=== PATIENT | female | born 1975 | race African-American/Black ===

== ENCOUNTER 2022-11-12 23:48 | Emergency (ER) | payer OTHER, SELFPAY ==
[2022-11-13 00:02] VITALS: BP 142/112; PULSE 97; RESP 16; O2SAT 99
[2022-11-13 02:19] VITALS: BP 138/91; PULSE 89; RESP 15; O2SAT 97
[2022-11-13] MEDS: SODIUM CHLORIDE 0.9% IV 50 ML, TRANEXAMIC ACID 1,000 MG TOPICAL (02:30)
--- NOTE | 2022-11-13 03:34 | ED.GENADULT ---
HPI - General Adult General Chief complaint: Dental/Oral Stated complaint: oral bleeding post implants Time Seen by Provider: 11/13/22 02:17 History of Present Illness HPI narrative: Patient 47-year-old female who presents the emergency department with chief complaint of bleeding from dental implant surgery. The patient reports that she had surgery on the and reports that she had an area that was Swollen and then tonight started bleeding. The patient states for several days she had intermittent bleeding but tonight it started bleeding heavily. Patient reports no new trauma reports no fever denies purulent drainage. Related Data Allergies Allergy/AdvReac Type Severity Reaction Status Date / Time tramadol Allergy Unknown Verified 11/13/22 00:04 Review of Systems Review of Systems: A 10 system review of systems was completed on the patient and is negative except for what is stated in the HPI. Nursing and ancillary documentation was reviewed. Exam Narrative: GENERAL: Well-appearing, well-nourished, and in no acute distress. HEAD: Normocephalic, atraumatic. EYES: PERRLA and EOMI. ENT: Nares clear, no rhinorrhea or epistaxis. Mucous membranes moist. There is a small clot present in the maxillary portion of the mouth. The area is oozing blood there is no purulent drainage NECK: Supple. CHEST: Clear to auscultation. No respiratory distress. HEART: Regular rate and rhythm. No murmur heard. Normal peripheral pulses. ABDOMEN: Soft, nontender, nondistended, normal active bowel sounds. EXTREMITIES: Normal range of motion. No edema. SKIN: Warm, dry, no rash. NEURO: No focal deficits. Alert and oriented x3. PSYCH: Normal mood and affect. Course Vital Signs Vital signs: Vital Signs Pulse Rate 97 11/13/22 00:02 Respiratory Rate 16 11/13/22 00:02 Blood Pressure 142/112 H 11/13/22 00:02 Pulse Oximetry 99 11/13/22 00:02 Pulse Rate 89 11/13/22 02:19 Respiratory Rate 15 11/13/22 02:19 Blood Pressure 138/91 H 11/13/22 02:19 Pulse Oximetry 97 11/13/22 02:19 Medical Decision Making MDM Narrative Medical decision making narrative: Differential diagnosis includes post dental surgical bleeding, The mouth was irrigated with saline and the clots were cleared the mouth was irrigated with TXA and a 2 x 2 saturated in TXA was applied to the affected area and pressure was held for approximately 5 minutes. Bleeding was controlled and the patient was observed in the emergency department and the patient will be discharged to follow-up with her dentist. Vital Signs Vital Signs: Vital Signs Pulse Rate 97 11/13/22 00:02 Respiratory Rate 16 11/13/22 00:02 Blood Pressure 142/112 H 11/13/22 00:02 Pulse Oximetry 99 11/13/22 00:02 Pulse Rate 89 11/13/22 02:19 Respiratory Rate 15 11/13/22 02:19 Blood Pressure 138/91 H 11/13/22 02:19 Pulse Oximetry 97 11/13/22 02:19 Discharge Plan Discharge Clinical Impression: Hemorrhage of tooth socket Patient Disposition: Home, Self-Care Condition: Stable Instructions: Antibiotic Form, Acute Dental Trauma (ED) Additional Instructions: May gently irrigate the mouth with salt water. Please follow-up with your dentist/oral surgeon as soon as possible Follow-up/Referrals: PHYSICIAN NOT ON STAFF,NONSTAFF [Primary Care Provider] - Time of Disposition: 03:38
[2022-11-13 03:46] VITALS: BP 110/95; PULSE 92; RESP 16; O2SAT 96
== END 2022-11-13 03:48 | disposition home or self-care (01) ==
PROVIDERS: Emergency Provider Emergency Medicine
DX: K91.840 Postprocedural hemorrhage of a digestive system organ or structure following a digestive system procedure (principal)
CPT/HCPCS: 99283